=== PATIENT | male | born 1960 | race Caucasian/White ===

== ENCOUNTER → 2018-03-21 | Outpatient (CLI) | payer BC ==
[~2018-03-21] MED LIST: ALLO300 PO; BENAML20/5 PO; C-500500 M1 PO; CENTRUM SILVER1 EAC1 PO; COLC.6 PO; HYDACE5 PO; IBUP400 PO; IBUP800 PO; INDO50 PO; OXYACE5T PO; PENVK500 PO; RXOXYACE PO
[2018-03-25 13:10] LABS: M-SPIKE, % Not Observed % (Not Observed); PROTEIN,TOTAL,URINE 6.7 mg/dL (Not Estab.)
== END | disposition home or self-care (01) ==
LOC: LAB 15:03 → LAB SHORT 15:03
PROVIDERS: Family Medicine
DX: E88.09 Other disorders of plasma-protein metabolism, not elsewhere classified (principal)
CPT/HCPCS: 84156; 84166

== ENCOUNTER 2020-10-02 05:25 | Emergency (ER) | payer OTHER, BC ==
[~2020-10-02] VITALS: Ht 172.7 cm; Wt 113.4 kg
== END 2020-10-02 06:49 | disposition home or self-care (01) ==
LOC: ER 05:25
DX: S39.012A Strain of muscle, fascia and tendon of lower back, initial encounter (principal); M54.6 Pain in thoracic spine; Z79.899 Other long term (current) drug therapy; X50.0XXA Overexertion from strenuous movement or load, initial encounter
CPT/HCPCS: 72100; 99283-25; A9270

== ENCOUNTER 2022-10-19 00:23 | Emergency (ER) | payer BC ==
[~2022-10-19] VITALS: Ht 172.7 cm; Wt 108.9 kg
[~2022-10-19 00:23] MED LIST changes: +CYCL10 PO
[2022-10-19 00:52] VITALS: BP 154/98
[2022-10-19] MEDS ORDERED: Ciprofloxacin2.5 ML RIGHTEYE (01:06)
[2022-10-19] MEDS ORDERED: KETOROLAC TROMET5 ML TOP (01:06)
== END 2022-10-19 02:33 | disposition home or self-care (01) ==
LOC: ER 00:23
DX: S05.01XA Injury of conjunctiva and corneal abrasion without foreign body, right eye, initial encounter (principal); H10.11 Acute atopic conjunctivitis, right eye; X58.XXXA Exposure to other specified factors, initial encounter; M10.9 Gout, unspecified; Z88.8 Allergy status to other drugs, medicaments and biological substances; Z79.899 Other long term (current) drug therapy
CPT/HCPCS: A9270; J7030